=== PATIENT | male | born 1985 | race African-American/Black ===

== ENCOUNTER 2016-10-29 14:28 | Emergency (ER) | payer OTHER ==
[~2016-10-29] VITALS: Ht 180.3 cm; Wt 102.3 kg
[~2016-10-29 14:28] MED LIST: IBUP800T23 PO; Z.0.NO CURRENT MEDS
[2016-10-29 14:30] VITALS: BP 160/94; PULSE 96; RESP 15; TEMP 98.2; O2SAT 99
[2016-10-29] MEDS ORDERED: SODIUM CHLOR 0.9% 1000 ML INJ 1,000 ML IV ONE (16:06)
--- NOTE | 2016-10-29 16:12 | PD ---
HPI Chief Complaint: Headache Time Seen by Provider: 16:06 Travel History International Travel<30 days: No Contact w/Intl Traveler<30days: No Traveled to known affect area: No History of Present Illness HPI The patient is a 31-year-old [place] male who presents emergency department for headache. The patient developed a headache 2 days ago, slow onset, at rest, frontal forehead, throbbing, and worse with leaning forward and coughing. The patient does complain of mild nausea but denies any vomiting or abdominal pain. The patient denies any photophobia or neck pain. The patient states the headache came on gradually noted over, over several hours. He denies any thunderclap quality. The patient does have a history of migraines as a kid per his report, but states she has not had a migraine in years. He denies any focal deficits of the upper or lower extremities. Symptoms are moderate, no known alleviating or exacerbating factors. PFSH Past Medical History Medical History: Denies Significant Hx High Cholesterol: No Cerebrovascular Accident: No Diabetes: No Hypertension: No Myocardial Infarction: No Influenza Vaccination: No Past Surgical History Other Surgery: Yes (RT THUMB SURGERY) Family History Family Hypercholesterolemia: Yes Social History Alcohol Use: No Tobacco Use: No Substance Use: Yes (MARIJUANA OCCASIONALLY) Allergies-Medications (Allergen,Severity, Reaction): Coded Allergies: Compazine (Verified Adverse Reaction, Intermediate, AKASTHESIA, 10/29/16) Reported Meds & Prescriptions Reported Meds & Active Scripts Active Review of Systems Except as stated in HPI: all other systems reviewed are Neg General / Constitutional: No: Fever Eyes: No: Blurred Vision, Photophobia HENT: Positive: Headaches, No: Vertigo, Lightheadedness, Neck Pain Gastrointestinal: Positive: Nausea, No: Vomiting, Abdominal Pain Genitourinary: No: Dysuria Musculoskeletal: No: Myalgias, Arthralgias Skin: No Rash Neurologic: Positive: Headache, No: Dizziness, Slurred Speech, Paresthesia, Sensory Disturbance Physical Exam Narrative GENERAL: Awake, alert, pleasant 31-year-old male who appears his stated age and is in no acute respiratory distress. SKIN: Warm and dry. HEAD: Atraumatic. Normocephalic. EYES: Pupils equal and round. Pupils are 4 mm bilateral reactive. EOMs are intact. ENT: No nasal bleeding or discharge. Mucous membranes pink and moist. NECK: Trachea midline. No JVD. No meningeal signs. Patient is able fully flex and extend the neck as well as rotate to the left and right. CARDIOVASCULAR: Regular rate and rhythm. No murmur appreciated. RESPIRATORY: No accessory muscle use. Clear to auscultation. Breath sounds equal bilaterally. GASTROINTESTINAL: Abdomen soft, non-tender, nondistended. No rebound tenderness. MUSCULOSKELETAL: No obvious deformities. No clubbing. No cyanosis. No edema. NEUROLOGICAL: Awake and alert. No obvious cranial nerve deficits. Motor grossly within normal limits. Normal speech. Nonfocal. Oriented 4. PSYCHIATRIC: Appropriate mood and affect; insight and judgment normal. Data Data Last Documented VS Vital Signs Date Time Temp Pulse Resp B/P Pulse Ox O2 Delivery O2 Flow Rate FiO2 10/29/16 16:56 74 16 132/73 97 Room Air 10/29/16 14:30 98.2 Orders Ecg Monitoring (10/29/16 16:06) Iv Access Insert/Monitor (10/29/16 16:06) Oximetry (10/29/16 16:06) Sodium Chloride 0.9% Flush (Ns Flush) (10/29/16 16:15) Acetaminophen (Tylenol) (10/29/16 16:15) Ketorolac Inj (Toradol Inj) (10/29/16 16:15) Prochlorperazine Inj (Compazine Inj) (10/29/16 16:15) Diphenhydramine Inj (Benadryl Inj) (10/29/16 16:15) Sodium Chlor 0.9% 1000 Ml Inj (Ns 1000 M (10/29/16 16:06) Methylprednisolone So Succ Inj (Solumedr (10/29/16 16:15) Lorazepam Inj (Ativan Inj) (10/29/16 17:15) Lorazepam Inj (Ativan Inj) (10/29/16 17:03) MDM Medical Decision Making Medical Screen Exam Complete: Yes Emergency Medical Condition: Yes Medical Record Reviewed: Yes Differential Diagnosis Differential diagnosis includes migraine, tension headache, cluster headache, glaucoma, sinusitis. Narrative Course IV was established, the patient was placed on cardiac telemetry monitoring and continuous pulse oximetry monitoring. The patient has a history of migraines, is nonfocal on exam, and has no meningeal signs. Therefore, patient was given Compazine, Benadryl, slight Medrol, and Toradol with IV fluids. Approximately 20 minutes later the patient had a reaction to medication, most likely Compazine , with akathisia. Therefore, the patient was administered Ativan 1 mg intravenously. The patient was reevaluated at 6:15 PM, his headache had resolved. Patient feels well enough to go home. Diagnosis Primary Impression: Cephalgia Patient Instructions: General Instructions Additional Instructions: Follow-up with your primary physician. Return if symptoms worsen or progress. Med/Other Pt SpecificInfo: No Change to Meds Scripts No Active Prescriptions or Reported Meds Disposition: 01 DISCHARGE HOME Condition: Stable Cassius Simmons MD Oct 29, 2016 16:12
[2016-10-29] MEDS ORDERED: ACETAMINOPHEN 325 MG TAB PO ONE (16:15)
[2016-10-29] MEDS ORDERED: methylPREDNISolone SOD SUCC 125 MG/2 ML VIAL IV PUSH ONE (16:15)
[2016-10-29] MEDS ORDERED: diphenhydrAMINE HCL 50 MG/ML VIAL IVP ONE (16:15)
[2016-10-29] MEDS ORDERED: SODIUM CHLORIDE 0.9% FLUSH 5 ML FLUSH IVF PRN (16:15)
[2016-10-29] MEDS ORDERED: KETOROLAC TROMETHAMINE 30 MG/ML (IVP) VIAL IVP ONE (16:15)
[2016-10-29] MEDS ORDERED: PROCHLORPERAZINE INJ 10 MG/2 ML VIAL IVP ONE (16:15)
[2016-10-29 16:56] VITALS: BP 132/73; PULSE 74; RESP 16; O2SAT 97
[2016-10-29] MEDS ORDERED: LORazepam 2 MG/ML VIAL ONE (17:03)
[2016-10-29] MEDS ORDERED: LORazepam 2 MG/ML VIAL IV PUSH ONE (17:15)
[2016-10-29 18:28] VITALS: BP 141/78; PULSE 90; RESP 16; O2SAT 95
== END 2016-10-29 19:02 | disposition home or self-care (01) ==
LOC: NEPE 14:28
DX: R51 Headache (principal); R11.0 Nausea; G25.71 Drug induced akathisia; Z86.69 Personal history of other diseases of the nervous system and sense organs; T50.905A Adverse effect of unspecified drugs, medicaments and biological substances, initial encounter; Y92.538 Other ambulatory health services establishments as the place of occurrence of the external cause
CPT/HCPCS: 96361; 96374; 96375; 99283; J0780; J1200; J1885; J2060; J2930; J7030

== ENCOUNTER 2017-11-08 11:05 | Emergency (ER) | payer SELFPAY ==
[~2017-11-08] VITALS: Ht 182.9 cm; Wt 100.0 kg
[2017-11-08 11:11] VITALS: BP 145/77; PULSE 76; RESP 16; TEMP 98; O2SAT 98
--- NOTE | 2017-11-08 12:10 | PD ---
HPI Chief Complaint: Numbness/Tingling Time Seen by Provider: 11:52 Travel History International Travel<30 days: No Contact w/Intl Traveler<30days: No Traveled to known affect area: No History of Present Illness HPI 32-year-old -[place] male presents emergency department with sudden onset right-sided arm tingling and tenderness, mainly in the elbow region extending down into the hand. Patient then states he developed some tingling in the right side of his face and lips, and along the right upper lateral thigh. Patient states no fever, chills, weakness, headache, visual changes, or other symptoms. He states he did play video games for about 2 hours straight yesterday. He denies doing anything more strenuous. He denies any form of drug use or alcohol. He has no history of diabetes. Pain is minimal, is more of a sensation of tingling. He describes it as "an electric shock feeling". Patient is allergic to prochlorperazine. [facility] Past Medical History Medical History: Denies Significant Hx High Cholesterol: No Cerebrovascular Accident: No Diabetes: No Diminished Hearing: No Hypertension: No Myocardial Infarction: No Tetanus Vaccination: < 5 Years Influenza Vaccination: No ?: Not Past Surgical History Other Surgery: Yes (RT THUMB SURGERY) Family History Family Hypercholesterolemia: Yes Social History Alcohol Use: No Tobacco Use: No Substance Use: Yes (MARIJUANA OCCASIONALLY) Allergies-Medications (Allergen,Severity, Reaction): Coded Allergies: prochlorperazine (Unverified Adverse Reaction, Intermediate, AKASTHESIA, ) Reported Meds & Prescriptions Reported Meds & Active Scripts Active Review of Systems Except as stated in HPI: all other systems reviewed are Neg General / Constitutional: No: Fever Eyes: No: Visual changes HENT: No: Headaches Cardiovascular: No: Chest Pain or Discomfort Respiratory: No: Shortness of Breath Gastrointestinal: No: Abdominal Pain Genitourinary: No: Dysuria Musculoskeletal: No: Pain Skin: No Rash Neurologic: Positive: Paresthesia, No: Weakness Psychiatric: No: Depression Endocrine: No: Polydipsia Hematologic/Lymphatic: No: Easy Bruising Physical Exam Narrative GENERAL: Patient appears in no acute distress. He is ambulating normally into the exam room. SKIN: Warm and dry. Normal color. Normal turgor. No rash HEAD: Atraumatic. Normocephalic. Nontender EYES: Pupils equal and round. No scleral icterus. No injection or drainage. Ocular motions are equal bilaterally. No nystagmus ENT: No nasal bleeding or discharge. Mucous membranes pink and moist. TMs are clear bilaterally. Pharynx is clear. Tongue is midline. Uvula is normal. Airways patent. NECK: Trachea midline. Nontender. Range of motion is full and on tender. CARDIOVASCULAR: Regular rate and rhythm. No murmurs gallops or rubs RESPIRATORY: No accessory muscle use. Clear to auscultation. Breath sounds equal bilaterally. GASTROINTESTINAL: Abdomen soft, non-tender, nondistended. Hepatic and splenic margins not palpable. MUSCULOSKELETAL: Extremities without clubbing, cyanosis, or edema. No obvious deformities. Range of motion of all extremities is normal with normal strength bilaterally. Normal plywood layup line back feeder strength. Patient does have some mild tenderness with palpation of the medial and lateral epicondyle of the right elbow. Palpation of the medial epicondyle reproduces the patient's numbness in the right arm NEUROLOGICAL: Awake and alert. No obvious cranial nerve deficits. Motor grossly within normal limits. Five out of 5 muscle strength in the arms and legs. Patient has normal smile. He is able to close both eyes equally without weakness there is no facial droop. Patient has normal plywood layup line back feeder strength bilaterally , as well as normal nose to finger testing. Patient has positive Tinel's at the right ulnar notch. Negative Tinel's at the right carpal tunnel. Patient can stand, squat, tiptoe, and heel walk without difficulty. Normal speech. PSYCHIATRIC: Appropriate mood and affect; insight and judgment normal. Data Data Last Documented VS Vital Signs Date Time Temp Pulse Resp B/P (MAP) Pulse Ox O2 Delivery O2 Flow Rate FiO2 11/08/17 11:11 98.0 76 16 145/77 (99) 98 Orders Orders Electrocardiogram (11/08/17 11:13) Complete Blood Count With Diff (11/08/17 11:13) Basic Metabolic Panel (Bmp) (11/08/17 11:13) Ckmb (Isoenzyme) Profile (11/08/17 11:13) Troponin I (11/08/17 11:13) MDM Medical Decision Making Medical Screen Exam Complete: Yes Emergency Medical Condition: Yes Differential Diagnosis Ulnar nerve entrapment. Neuritis. Tendinitis. Tennis elbow. MS. CVA. Narrative Course Based on my history, physical, and testing, I do not feel this patient warrants further medical workup today. Patient was discussed with Dr. Simmons who agrees with this assessment. Patient will be treated empirically with ibuprofen 800 mg 3 times daily 10 days. Patient is recommended to decrease his use of his videogames, and repetitive motion of the right elbow. Patient was recommended to use ice to the elbow, frequently. Patient is to follow-up with local primary care physician or return to emergency department if symptoms worsen for further evaluation. Neurologist follow-up is not felt warranted at this time Diagnosis Primary Impression: Neuritis of right ulnar nerve Additional Impression: Right tennis elbow Referrals: [facility] Patient Instructions: General Instructions, Tennis Elbow (ED), Tennis Elbow Exercises (GEN) Additional Instructions: Based on my history, physical, and testing, I do not feel this patient warrants further medical workup today. Patient was discussed with Dr. Simmons who agrees with this assessment. Patient will be treated empirically with ibuprofen 800 mg 3 times daily 10 days. Patient is recommended to decrease his use of his videogames, and repetitive motion of the right elbow. Patient was recommended to use ice to the elbow, frequently. Patient is to follow-up with local primary care physician or return to emergency department if symptoms worsen for further evaluation. Neurologist follow-up is not felt warranted at this time Med/Other Pt SpecificInfo: Prescription(s) given Scripts No Active Prescriptions or Reported Meds Disposition: 01 DISCHARGE HOME Condition: Stable Rishi Cantu Nov 08, 2017 12:10
[2017-11-08] MEDS ORDERED: IBUP1TAB7 PO (12:11)
[2017-11-08 12:23] LABS: AUTOMATED NEUTROPHIL # 1.3 TH/MM3 (1.8-7.7); BASOPHIL % 1.2 % (0.0-2.0); EOSINOPHIL # 0.1 TH/MM3 (0-0.4); EOSINOPHIL % 1.9 % (0.0-4.0); HEMATOCRIT 40.2 % (39.0-51.0); LYMPH % 50.9 % (9.0-44.0); LYMPHOCYTE # 1.7 TH/MM3 (1.0-4.8); MEAN CELL VOLUME 84.9 FL (80.0-100.0); MEAN CORPUSCULAR HEMOGLOBIN 29.6 PG (27.0-34.0); MEAN CORPUSCULAR HGB CONC 34.8 % (32.0-36.0); MONOCYTE # 0.2 TH/MM3 (0-0.9); PLATELET COUNT 200 TH/MM3 (150-450); RED BLOOD COUNT 4.74 MIL/MM3 (4.50-5.90); RED CELL DISTRIBUTION WIDTH 14.3 % (11.6-17.2); WHITE BLOOD COUNT 3.4 TH/MM3 (4.0-11.0)
[2017-11-08 12:42] LABS: BICARBONATE 28.4 MEQ/L (21.0-32.0); BLOOD UREA NITROGEN 8 MG/DL (7-18); CALCIUM 8.8 MG/DL (8.5-10.1); CHLORIDE 108 MEQ/L (98-107); CREATININE 0.81 MG/DL (0.60-1.30); GLOMERULAR FILTRATION RATE 136 ML/MIN (>89); GLUCOSE,RANDOM 100 MG/DL (74-106); SODIUM (NA) 142 MEQ/L (136-145)
[2017-11-08 12:45] LABS: TROPONIN I LESS THAN 0.02 NG/ML (0.02-0.05)
--- NOTE | 2017-11-09 23:28 | EKG ---
Date Performed: 11/08/2017 Time Performed: 11:24:40 PTAGE: 32 years EKG: Sinus rhythm WITH SINUS ARRHYTHMIA NORMAL ECG PREVIOUS TRACING : 06/09/2014 14.49 Since the prior tracing, there has been no significant padgett DOCTOR: Julián Bajwa Interpretating Date/Time 11/09/2017 23:27:00
== END 2017-11-08 12:28 | disposition home or self-care (01) ==
LOC: NEPD 11:05
DX: G56.21 Lesion of ulnar nerve, right upper limb (principal); M77.11 Lateral epicondylitis, right elbow; F12.90 Cannabis use, unspecified, uncomplicated
CPT/HCPCS: 80048; 82550; 82552; 84484; 85025; 93005; 99284